=== PATIENT | male | born 1995 | race Caucasian/White ===

== ENCOUNTER 2016-05-13 15:04 | Emergency (ER) | payer BC ==
[2016-05-13 15:22] VITALS: BP 151/85
--- NOTE | 2016-05-13 15:44 | UC ---
Skin Complaint HPI - HPI Summary HPI Summary: Itchy, blotchy rash on bilat forearms now spread up to the upper arms starting last night. Pt had similar rashes as a child, dx as hives. Has had cough, nasal congestion, and URI sx, has been taking daytime & nighttime cough/cold remedies for about a week. - History of Current Complaint Chief Complaint: UCRash Time Seen by Provider: 05/13/16 15:26 Stated Complaint: RASH,HIVES Hx Obtained From: Patient Onset/Duration: Gradual Onset, Lasting Days Skin Exposure Onset/Duration: Hours Ago Timing: Constant Onset Severity: Mild Current Severity: Mild Location: Diffuse Character: Pruritus, Hives, Redness Aggravating: Nothing Alleviating: Nothing Associated Signs & Symptoms: Positive: Rash Related History: Recent change in medication - Allergy/Home Medications Allergies/Adverse Reactions: Allergies Allergy/AdvReac Type Severity Reaction Status Date / Time Azithromycin [From Zithromax] Allergy Rash Verified 10/30/15 20:54 Home Medications: Home Medications diPHENhydraMINE PO* [Benadryl PO 25 MG TAB*] 2 tab PO PRN 05/13/16 [History] Review of Systems Constitutional: Negative Skin: Rash Eyes: Negative ENT: Nasal Discharge Respiratory: Cough Cardiovascular: Negative Gastrointestinal: Negative Genitourinary: Negative Motor: Negative Neurovascular: Negative Musculoskeletal: Negative Neurological: Negative Psychological: Negative All Other Systems Reviewed And Are Negative: Yes PMH/Surg Hx/FS Hx/Imm Hx Endocrine History Of: Denies: Diabetes, Thyroid Disease Cardiovascular History Of: Denies: Cardiac Disorders, Hypertension Respiratory History Of: Denies: COPD, Asthma GI/ History Of: Denies: Ulcer - Surgical History Surgical History: None - Family History Known Family History: Positive: None, Hypertension Negative: Cardiac Disease, Diabetes - Social History Lives: With Family Alcohol Use: Weekly Alcohol Amount: 1-2 times per weeik Substance Use Type: None Smoking Status (MU): Heavy Every Day Tobacco Smoker Type: Cigarettes Amount Used/How Often: 1 PPD for 5 years Length of Time of Smoking/Using Tobacco: 5 years Have You Smoked in the Last Year: Yes Household Exposure Type: Cigarettes Physical Exam Triage Information Reviewed: Yes Appearance: Well-Appearing, No Pain Distress, Obese Vital Signs: Initial Vital Signs Temp 96.7 F 05/13/16 15:17 Pulse 119 05/13/16 15:17 Resp 18 05/13/16 15:17 BP 151/85 05/13/16 15:17 Pulse Ox 100 05/13/16 15:17 Vital Signs Reviewed: Yes Eye Exam: Normal Eyes: Positive: Conjunctiva Clear ENT: Positive: Pharynx normal, Nasal congestion, TMs normal Dental Exam: Normal Neck exam: Normal Neck: Positive: Supple, Nontender, No Lymphadenopathy Respiratory Exam: Normal Respiratory: Positive: Chest non-tender, Lungs clear, Normal breath sounds, No respiratory distress, No accessory muscle use Cardiovascular: Positive: No Murmur, Tachycardia Neurological Exam: Normal Psychological Exam: Normal Skin Exam: Other - urticaria Course/Dx - Diagnoses Provider Diagnoses: urticaria. URI. elevated blood pressure due to decongestant use Discharge - Discharge Plan Condition: Stable Disposition: HOME Prescriptions: predniSONE TAB* [Deltasone TAB*] 50 mg PO DAILY #2 tab Patient Education Materials: Urticaria (ED) Referrals: No Primary Care Phys,NOPCP [Primary Care Provider] - Additional Instructions: Stop taking the daytime/nighttime cold medicine, as I suspect you are reacting to something in that. It may be a dye or a preservative, but try to avoid such medications in the future. Recurrent reactions can get worse over time. If you have swelling of the face, trouble breathing, fainting, or severe pain, please go to the emergency department. If you have persistent or gradually worsening symptoms, return here.
== END 2016-05-13 15:49 | disposition home or self-care (01) ==
LOC: UCEAST 15:04
DX: F17.210 Nicotine dependence, cigarettes, uncomplicated (principal); J06.9 Acute upper respiratory infection, unspecified; E66.9 Obesity, unspecified; L50.9 Urticaria, unspecified; R03.0 Elevated blood-pressure reading, without diagnosis of hypertension; Z88.3 Allergy status to other anti-infective agents
CPT/HCPCS: 99212; G0463

== ENCOUNTER 2016-05-15 03:49 | Emergency (ER) | payer BC ==
--- NOTE | 2016-05-15 04:42 | ED ---
Daryl Ramos Billy, scribed for Eric Wells MD on 05/15/16 at 0442 . Skin Complaint - HPI Summary HPI Summary: Patient is a 20 y/o male coming to [facility] for evaluation of diffuse hives for the last 3 days. Patient has taken prednisone and benadryl for his symptoms with little improvement. He also reports having shortness of breath and difficulty swallowing. - History of Current Complaint Chief Complaint: EDRashSkinAbscess Time Seen by Provider: 05/15/16 04:08 Stated Complaint: HIVES ALL OVER Hx Obtained From: Patient Onset/Duration: Started Days Ago, Still Present Timing: Constant Onset Severity: Moderate Current Severity: Moderate Skin Location: Diffuse Character: Hives Aggravating Symptom(s): Nothing Alleviating Symptom(s): Nothing Associated Signs & Symptoms: Difficulty Breathing - Allergy/Home Medications Allergies/Adverse Reactions: Allergies Allergy/AdvReac Type Severity Reaction Status Date / Time Azithromycin [From Zithromax] Allergy Rash Verified 10/30/15 20:54 PMH/Surg Hx/FS Hx/Imm Hx Endocrine/Hematology History: Denies: Hx Diabetes, Hx Thyroid Disease Cardiovascular History: Denies: Hx Hypertension Respiratory History: Denies: Hx Asthma, Hx Chronic Obstructive Pulmonary Disease (COPD) GI History: Denies: Hx Ulcer Infectious Disease History: Denies: Hx Clostridium Difficile, Hx Hepatitis, Hx Human Immunodeficiency Virus (HIV), Hx of Known/Suspected MRSA, Hx Shingles, Hx Tuberculosis, Hx Known/ Suspected VRE, Hx Known/Suspected VRSA, History Other Infectious Disease, Traveled Outside the [place] in Last 30 Days - Family History Known Family History: Positive: Hypertension Negative: Cardiac Disease, Diabetes - Social History Alcohol Use: Weekly Alcohol Amount: 1-2 times per weeik Substance Use Type: Reports: None Smoking Status (MU): Heavy Every Day Tobacco Smoker Type: Cigarettes Amount Used/How Often: 1 PPD for 5 years Length of Time of Smoking/Using Tobacco: 5 years Have You Smoked in the Last Year: Yes Review of Systems Positive: Other - difficulty swallowing Positive: Shortness Of Breath Positive: Rash All Other Systems Reviewed And Are Negative: Yes Physical Exam Triage Information Reviewed: Yes Vital Signs On Initial Exam: Initial Vital Signs BP 142/82 05/15/16 04:55 Vital Signs Reviewed: Yes Appearance: Positive: Well-Appearing, No Pain Distress Skin: Positive: Warm, Other - patchy urticaria Head/Face: Positive: Normal Head/Face Inspection Eyes: Positive: DANIELLE ENT: Positive: Hearing grossly normal Neck: Positive: Supple Respiratory/Lung Sounds: Positive: Clear to Auscultation, Breath Sounds Present Cardiovascular: Positive: RRR Abdomen Description: Positive: Nontender, Soft Bowel Sounds: Positive: Present Musculoskeletal: Positive: Strength/ROM Intact Neurological: Positive: Sensory/Motor Intact, Alert, Oriented to Person Place, Time Psychiatric: Positive: Affect/Mood Appropriate Diagnostics - Laboratory Lab Statement: Any lab studies that have been ordered have been reviewed, and results considered in the medical decision making process. - Radiology CXR Xray Interpretation: No Acute Changes Radiology Interpretation Completed By: ED Physician Re-Evaluation - Re-Evaluation First Eval Comment: pt only had 2 days of prednisone, will rx for 3 more days and referral to derm Course/Dx - Diagnoses Provider Diagnoses: Rash Discharge - Discharge Plan Condition: Stable Disposition: HOME Prescriptions: predniSONE TAB* [Deltasone TAB*] 40 mg PO DAILY #6 tab Patient Education Materials: Acute Rash (ED) Referrals: Seble Felxi [Medical Doctor] - [facility] [place] [facility] [Outside] The documentation as recorded by the Daryl cuevas Billy accurately reflects the service I personally performed and the decisions made by , Eric Wells MD.
[2016-05-15 05:04] VITALS: BP 137/76
--- NOTE | 2016-05-15 07:53 | RAD ---
INDICATION: Shortness of breath and body rash COMPARISON: None TECHNIQUE: PA and lateral views of the chest were obtained. FINDINGS: The heart and mediastinum are normal in size and contour. The lungs are grossly clear. There is no evidence of large pleural effusion. Visualized bones are normal for the patient's age. There is no radiographic evidence of free air beneath the diaphragm IMPRESSION: No radiographic evidence of acute cardiopulmonary disease.
== END 2016-05-15 06:12 | disposition home or self-care (01) ==
LOC: ED 03:49
DX: R21 Rash and other nonspecific skin eruption (principal); R06.02 Shortness of breath; F17.210 Nicotine dependence, cigarettes, uncomplicated
CPT/HCPCS: 71020; 99283

== ENCOUNTER 2016-08-19 12:20 | Emergency (ER) | payer BC ==
[2016-08-19 12:36] VITALS: BP 177/106
--- NOTE | 2016-08-19 12:45 | UC ---
Dental HPI - HPI Summary HPI Summary: complaint of dental pain that started 2-3 days ago right upper jaw broke a tooth several months ago feeling pressure build up and can taste a foul tastse with drainage went to dental - [facility] but they were closed using salt and baking soda on his tooth taking ibuprofen for pain denies fever - History of Current Complaint Chief Complaint: UCDentalProblem Stated Complaint: DENTAL PAIN Time Seen by Provider: 08/19/16 12:39 Hx Obtained From: Patient - Allergies/Home Medications Allergies/Adverse Reactions: Allergies Allergy/AdvReac Type Severity Reaction Status Date / Time Azithromycin [From Zithromax] Allergy Rash Verified 08/19/16 12:36 Home Medications: Home Medications Ibuprofen [Advil] 400 mg PO Q6HR PRN 08/19/16 [History Confirmed 08/19/16] Sertraline HCl [Zoloft] 1 tab PO DAILY 08/19/16 [History Confirmed 08/19/16] PMH/Surg Hx/FS Hx/Imm Hx Previously Healthy: Yes Cardiovascular History: Hypertension - Surgical History Surgical History: None - Family History Known Family History: Positive: None, Hypertension Negative: Cardiac Disease, Diabetes - Social History Occupation: Employed Full-time Lives: With Family Alcohol Use: Weekly Alcohol Amount: 1-2 times per weeik Substance Use Type: None Smoking Status (MU): Heavy Every Day Tobacco Smoker Type: Cigarettes Amount Used/How Often: 7-8cig/day Length of Time of Smoking/Using Tobacco: 5 years Have You Smoked in the Last Year: Yes Household Exposure Type: Cigarettes Review of Systems Constitutional: Negative Skin: Negative Eyes: Negative ENT: Dental Pain Respiratory: Negative Cardiovascular: Negative Gastrointestinal: Negative Genitourinary: Negative Motor: Negative Neurovascular: Negative Musculoskeletal: Negative Neurological: Negative Psychological: Negative All Other Systems Reviewed And Are Negative: Yes Physical Exam Triage Information Reviewed: Yes Appearance: No Pain Distress, Well-Nourished Vital Signs: Initial Vital Signs Temp 98.6 F 08/19/16 12:33 Pulse 108 08/19/16 12:33 Resp 16 08/19/16 12:33 BP 177/106 08/19/16 12:33 Pulse Ox 98 08/19/16 12:33 Vital Signs Reviewed: Yes Eyes: Positive: Conjunctiva Clear ENT: Positive: Pharynx normal, TMs normal Dental: Positive: Dental Fracture @ - 4, Abscess @ - between 4-5 Neck: Positive: No Lymphadenopathy Respiratory: Positive: Lungs clear, Normal breath sounds, No respiratory distress Cardiovascular: Positive: RRR, No Murmur, Pulses Normal Musculoskeletal Exam: Normal Neurological: Positive: Alert Psychological Exam: Normal Skin Exam: Normal Dental Complaint Course/Dx - Differential Dx/Diagnosis Differential Diagnosis/Dx: Dental Abscess, Fractured Tooth Provider Diagnoses: dental infection -abscess Discharge - Discharge Plan Condition: Stable Disposition: HOME Prescriptions: Amoxicillin/Clavulanate TAB* [Augmentin TAB 875*] 875 mg PO BID #20 tab oxyCODONE/Acetamin 5/325 MG* [Percocet 5/325 TAB*] 1 tab PO Q4H PRN #12 tab MDD 6 PRN Reason: Pain (Dental) Patient Education Materials: Dental Abscess (ED) Referrals: No Primary Care Phys,NOPCP [Primary Care Provider] - Additional Instructions: Your blood pressure is elevated. Please contact your primary care provider within 1 -4 weeks for further evaluation. Please start antibiotic as directed Increase fluids and rest Take acetaminophen or ibuprofen for fever or pain Please review your discharge instructions. If your symptoms do not improve please call your primary care provider or return to urgent care.
== END 2016-08-19 13:11 | disposition home or self-care (01) ==
LOC: UCEAST 12:20
DX: K04.7 Periapical abscess without sinus (principal); I10 Essential (primary) hypertension; Z72.0 Tobacco use
CPT/HCPCS: 99212; G0463

== ENCOUNTER 2016-11-17 14:06 | Emergency (ER) | payer BC ==
[2016-11-17 14:23] VITALS: BP 139/95
--- NOTE | 2016-11-17 14:51 | UC ---
Dental HPI - HPI Summary HPI Summary: right upper 1st molar pain fractured tooth with gum swelling has been broken for a while but now has abscess return - History of Current Complaint Chief Complaint: UCDentalProblem Stated Complaint: DENTAL PAIN Time Seen by Provider: 11/17/16 14:32 Hx Obtained From: Patient Hx From Patient Unobtainable Due To: Altered Mental Status - of swelling Onset/Duration: Sudden Onset, Worse Since - past couple of days Severity: Mild Aggravating Factor(s): Nothing Alleviating Factor(s): Nothing Related History: Previous Dental Care on Same Tooth, Swelling - Allergies/Home Medications Allergies/Adverse Reactions: Allergies Allergy/AdvReac Type Severity Reaction Status Date / Time Azithromycin [From Zithromax] Allergy Rash Verified 11/17/16 14:20 PMH/Surg Hx/FS Hx/Imm Hx Previously Healthy: Yes - Surgical History Surgical History: None - Family History Known Family History: Positive: None, Hypertension Negative: Cardiac Disease, Diabetes - Social History Occupation: Employed Full-time Lives: With Family Alcohol Use: Weekly Alcohol Amount: 1-2 times per weeik Substance Use Type: None Smoking Status (MU): Heavy Every Day Tobacco Smoker Type: Cigarettes Amount Used/How Often: 7-8cig/day Length of Time of Smoking/Using Tobacco: 5 years Have You Smoked in the Last Year: Yes Household Exposure Type: Cigarettes Cessation Counseling: Patient Advised to Stop Review of Systems Constitutional: Negative Skin: Negative Eyes: Negative ENT: Dental Pain - decayed and broken 1st molar right upper gum---now has abscess in gum Respiratory: Negative Cardiovascular: Negative Gastrointestinal: Negative Genitourinary: Negative Motor: Negative Neurovascular: Negative Musculoskeletal: Negative Neurological: Negative Psychological: Negative Is Patient Immunocompromised?: No All Other Systems Reviewed And Are Negative: Yes Physical Exam Triage Information Reviewed: Yes Appearance: Well-Appearing, No Pain Distress, Well-Nourished Vital Signs: Initial Vital Signs Temp 98 F 11/17/16 14:21 Pulse 104 11/17/16 14:21 Resp 20 11/17/16 14:21 BP 139/95 11/17/16 14:21 Pulse Ox 100 11/17/16 14:21 Vital Signs Reviewed: Yes Eye Exam: Normal Eyes: Positive: Conjunctiva Clear ENT Exam: Normal ENT: Positive: Normal ENT inspection, Hearing grossly normal, Pharynx normal, TMs normal. Negative: Nasal congestion, Nasal drainage, Trismus, Muffled/ hoarse voice Dental Exam: Normal Dental: Positive: Gross Decay/Caries @, Abscess @ Neck exam: Normal Neck: Positive: Supple, Nontender Respiratory Exam: Normal Respiratory: Positive: Chest non-tender, No respiratory distress, No accessory muscle use Cardiovascular Exam: Normal Cardiovascular: Positive: RRR, Pulses Normal, Brisk Capillary Refill Musculoskeletal Exam: Normal Musculoskeletal: Positive: Strength Intact, ROM Intact, No Edema Neurological Exam: Normal Neurological: Positive: Alert, Muscle Tone Normal Psychological Exam: Normal Skin Exam: Normal Dental Complaint Course/Dx - Course Course Of Treatment: hydrocodone, ibuprofen, amoxicillin, follow with dentist begining of week - Differential Dx/Diagnosis Differential Diagnosis/Dx: Dental Abscess, Dental Caries, Fractured Tooth, Odontogenic Pain Provider Diagnoses: right upper gum dental abscess, nicotine dependent Discharge - Discharge Plan Condition: Stable Disposition: HOME Prescriptions: Amoxicillin PO (*) [Amoxicillin 500 MG CAP*] 500 mg PO TID #30 cap Hydrocodone-Acetaminophen [Hydrocodone/Acetaminophen 5-325 mg] 1 tab PO Q4H #18 tab MDD 6 Patient Education Materials: Dental Abscess (ED) Referrals: [facility] [place] [facility] [place]Outside] - If Needed Additional Instructions: We have given you some dental referral information follow up TANJA-
== END 2016-11-17 15:02 | disposition home or self-care (01) ==
LOC: UCEAST 14:06
DX: K04.7 Periapical abscess without sinus (principal); Z88.3 Allergy status to other anti-infective agents; F17.210 Nicotine dependence, cigarettes, uncomplicated
CPT/HCPCS: 99212; G0463